=== PATIENT | female | born 1980 | race Two or more races ===

== ENCOUNTER 2017-07-15 01:17 | Emergency (ER) | payer OTHER ==
[~2017-07-15] VITALS: Ht 172.7 cm; Wt 77.1 kg
[2017-07-15] MEDS ORDERED: diphenhydrAMINE 50 MG/1 ML VIAL IM ONE (02:00)
--- NOTE | 2017-07-15 02:12 | NUR ---
Patient discharged to home in stable conditon. Written and verbal after care instructions given. Patient verbalizes understanding of instructions.
[2017-07-15] MEDS ORDERED: diphenhydrAMINE 50 MG/1 ML VIAL ONE (02:18)
== END 2017-07-15 02:12 | disposition home or self-care (01) ==
LOC: ER 01:22
DX: L50.0 Allergic urticaria (principal); F17.200 Nicotine dependence, unspecified, uncomplicated
CPT/HCPCS: A4663; J1200